=== PATIENT | female | born 1950 | race Caucasian/White ===

== ENCOUNTER 2017-08-28 09:04 | Emergency (ER) | payer OTHER ==
--- NOTE | 2017-08-28 11:05 | ED Physician Documentation ---
History of Present Illness - Stated complaint Stated Complaint: L ANKLE INJ - Chief complaint Chief Complaint: Ext Problem - Additonal information Additional information: hx from pt 67 female missed last step and rolled L ankle no other injury pain and swelling lat mall prefers no meds as she is scheduled for surgery tomorrow Review of Systems Musculoskeletal: reports: Pain with weight bearing PD PAST MEDICAL HISTORY - Present Medications Home Medications: Ambulatory Orders Medication Instructions Recorded Confirmed Alendronate [Fosamax] 70 mg 08/28/17 Cholecalciferol (Vitamin D3) 2,000 unit 08/28/17 [Vitamin D3] Valacyclovir HCl [Valtrex] 500 mg 08/28/17 - Allergies Allergies/Adverse Reactions: Allergies Allergy/AdvReac Type Severity Reaction Status Date / Time Antihistamines - Alkylamine Allergy Mild Hives Verified 08/28/17 09:19 codeine Allergy Mild Hives Verified 08/28/17 09:19 Penicillins Allergy Mild Hives Verified 08/28/17 09:19 - Social History Does the pt smoke?: No Smoking Status: Never smoker PD ED PE NORMAL - Vitals Vital signs reviewed: Yes - Extremities Extremities: Other (L ankle: TTP and edema laterall, TTP more inf than on lat mall, no 5th MT TTP, no medial no mid foot pain, MSV intact) Results - Vitals Vitals: Vital Signs - 24 hr 08/28/17 09:16 Temperature 36.9 C Heart Rate 59 L Respiratory 16 Rate Blood Pressure 110/68 O2 Saturation 98 Oxygen O2 Source Room air - Rads (name of study) ankle Radiology: See rad report (STS lat ankle, no fx, small calcific denities proc to base 5th MT could be ossicle ro small avusion fragments) PD MEDICAL DECISION MAKING - Sepsis Event Vital Signs: Vital Signs - 24 hr 08/28/17 09:16 Temperature 36.9 C Heart Rate 59 L Respiratory 16 Rate Blood Pressure 110/68 O2 Saturation 98 Oxygen O2 Source Room air Departure - Departure Disposition: 01 Home, Self Care Clinical Impression: Ankle sprain Qualifiers: Encounter type: initial encounter Involved ligament of ankle: unspecified ligament Laterality: left Qualified Code(s): S93.402A - Sprain of unspecified ligament of left ankle, initial encounter Condition: Good Instructions: ED Sprain Ankle W X Ray Comments: The ankle is not broken or dislocated. But there are some small fragments of bone avulsed from the lateral foot bone suggesting a ligamentous injury Recommend that you wear the ANU wrap, elevate your foot and apply ice for 20 minutes every 2-4 hours to keep the swelling down. Use the crutches to reduce weight bearing stress Follow up with orthopedics when you are home and have recovered from your surgery. Physical therapy may help the ligaments heal faster and with less residual laxity Tylenol as needed for the pain
--- NOTE | 2017-08-28 11:16 | XRAY Report ---
Procedure Date: 08/28/2017 Accession Number: [id number] / [id number] Procedure: XR - Ankle 3 View LT CPT Code: FULL RESULT: EXAM: LEFT ANKLE RADIOGRAPHY EXAM DATE: 08/28/2017 10:52 AM. CLINICAL HISTORY: Twisted ankle. Lateral swelling. COMPARISON: None. TECHNIQUE: 3 views. FINDINGS: Bones: Elongated calcific densities along lateral base of 5th metatarsal. 1.2 x 0.5 cm sclerotic density within proximal first metatarsal appears to be nonaggressive with narrow zone of transition. Probable bone island or enchondroma. Joints: Normal. No effusion. No subluxations. The ankle mortise is normally aligned. Soft Tissues: Prominent lateral left ankle soft tissue swelling. IMPRESSION: 1. Prominent lateral left ankle soft tissue swelling. 2. Elongated calcific densities along lateral base of 5th metatarsal could be related to secondary ossicles or tiny avulsion fragments. [facility]
[2017-08-28 12:45] VITALS: BP 122/57
== END 2017-08-28 12:57 | disposition home or self-care (01) ==
LOC: ED 09:04
DX: S93.402A Sprain of unspecified ligament of left ankle, initial encounter (principal); X50.1XXA Overexertion from prolonged static or awkward postures, initial encounter; Y93.01 Activity, walking, marching and hiking
CPT/HCPCS: 99283